=== PATIENT | female | born 1970 | race Hispanic/Latino ===

== ENCOUNTER 2017-05-03 16:28 | Emergency (ER) | payer BC ==
[2017-05-03] MEDS ORDERED: Ketorolac Tromethamine 30 MG/ML VIAL ONE (16:58)
[2017-05-03] MEDS ORDERED: diphenhydrAMINE HCl 50 MG/ML 1 ML VIAL ONE (16:58)
[2017-05-03] MEDS ORDERED: Metoclopramide HCl 10 MG/2 ML VIAL ONE (16:58)
== END 2017-05-03 19:10 | disposition home or self-care (01) ==
LOC: ERS 16:28
DX: R51 Headache (principal)
CPT/HCPCS: 81025; 96365; 96375; J1200; J1885; J2765

== ENCOUNTER 2017-11-17 14:24 | Outpatient (CLI) | payer BC ==
[2017-11-17 15:21] LABS: Hemoglobin 13.7 g/dL (12.0-16.0); Mean Corpuscular HGB CONC 33.8 g/dL (32.0-36.0); Mean Corpuscular Hemoglobin 29.1 pg (27.0-31.0); Mean Corpuscular Volume 86.3 fl (81.0-99.0); Mean Platelet Volume 7.9 fL (7.4-10.4); Platelet Count 252 thou/uL (130-400); RBC Distribution Width 11.6 % (11.5-14.5); White Blood Cell (WBC) Count 7.9 thou/uL (4.8-10.8)
[2017-11-17 15:44] LABS: BHCG - Serum Negative (NEGATIVE); Pregs Control Background? CLEAR/WHITE (CLR/WHITE); Pregs Control Bar Appear? YES (CONTROL BAR)
== END 2017-11-17 14:25 | disposition home or self-care (01) ==
LOC: LABBT 14:24
PROVIDERS: ATTEND Obstetrics & Gynecology
DX: Z01.812 Encounter for preprocedural laboratory examination (principal); R19.09 Other intra-abdominal and pelvic swelling, mass and lump; R10.2 Pelvic and perineal pain
CPT/HCPCS: 84703; 85027; 86850; 86900; 86901

== ENCOUNTER 2017-11-19 10:51 | Emergency (ER) | payer BC ==
[2017-11-19] MEDS ORDERED: Morphine 4 MG/ML VIAL ONE ×2 (11:25→11:33)
[2017-11-19 11:33] LABS: #Basophils 0.1 thou/uL (0.0-0.2); #Eosinphils 0.2 thou/uL (0.0-0.7); #Lymphocytes 1.8 thou/uL (1.20-3.40); #Monocytes 0.8 thou/uL (0.11-0.59); #Neutrophils 6.8 thou/uL (1.40-6.50); %Basophils 0.6 % (0.0-1.0); %Eosinophils 2.4 % (0.0-10.0); %Lymphocytes 18.9 % (21.0-51.0); %Monocytes 7.9 % (0.0-10.0); %Neutrophils 70.1 % (42.0-75.0); Mean Corpuscular HGB CONC 34.5 g/dL (32.0-36.0); Mean Corpuscular Hemoglobin 29.3 pg (27.0-31.0); Mean Corpuscular Volume 85.1 fl (81.0-99.0); Mean Platelet Volume 7.7 fL (7.4-10.4); Platelet Count 248 thou/uL (130-400); RBC Distribution Width 11.6 % (11.5-14.5); Red Blood Cell (RBC) Count 4.78 mill/uL (4.20-5.40); White Blood Cell (WBC) Count 9.8 thou/uL (4.8-10.8)
[2017-11-19 11:37] LABS: BHCG - Serum Negative (NEGATIVE); Pregs Control Background? CLEAR/WHITE (CLR/WHITE); Pregs Control Bar Appear? YES (CONTROL BAR)
[2017-11-19 11:45] LABS: ALT (SGPT) 50 U/L (8-55); AST (SGOT) 27 U/L (5-34); Alkaline Phosphatase 84 U/L (40-150); Anion Gap 13 mmol/L (10-20); BUN (Urea Nitrogen) 16 mg/dL (7.0-18.7); Bilirubin, Total 0.6 mg/dL (0.2-1.2); Calc. Creatinine Clearance 0 mL/min (70-130); Calcium 9.8 mg/dL (7.8-10.44); Carbon Dioxide 23 mmol/L (22-29); Chloride 107 mmol/L (98-107); Estimated GFR-MDRD Greater than 90; Globulin 2.9 g/dL (2.4-3.5); Glucose 95 mg/dL (70-105); Lipase 6 U/L (8-78); Potassium 3.8 mmol/L (3.5-5.1); Protein, Total 6.9 g/dL (6.0-8.3); Sodium 139 mmol/L (136-145)
[2017-11-19 12:45] LABS: Bilirubin Negative (Negative); Blood, Urine Negative (Negative); Clarity CLEAR (Clear); Glucose, Urine (Dipstick) Negative (Negative); Leukocyte Negative (Negative); Nitrite Negative (Negative); Protein, Urine (Dipstick) Negative (Neg-Trace); Specific Gravity, Urine 1.019 (1.002-1.036); Urobilinogen 0.2 mg/dL (0.2-1.0)
--- NOTE | 2017-11-19 13:13 | ULT ---
PELVIC SONOGRAM TRANSABDOMINAL AND TRANSVAGINAL IMAGING WITH DUPLEX EVALUATION: Date: 11/19/17 HISTORY: Pelvic pain. FINDINGS: Urinary bladder decompressed. Uterus has a heterogeneous echotexture and is 7.4 cm. At the left side of the fundus, heterogeneous hypoechoic lesions are 4.0 and 2.8 cm greatest diameter. Small amount of fluid is present at the lower uterine segment. Endometrium is 0.6 cm. Right ovary is 2.5 cm with good color and spectral Doppler flow. Left ovary not visualized. IMPRESSION: Moderate fibroid involvement of the uterus. POS: [facility]
[2017-11-19] MEDS ORDERED: Ketorolac Tromethamine 30 MG/ML VIAL ONE (13:25)
== END 2017-11-19 13:41 | disposition home or self-care (01) ==
LOC: ERS 10:51
DX: D25.9 Leiomyoma of uterus, unspecified (principal)
CPT/HCPCS: 76856; 80053; 81003; 83690; 84703; 85025; 96361; 96374; 96375; J1885; J2270

== ENCOUNTER 2017-12-09 22:21 | Inpatient (IN) | payer BC ==
[2017-12-09 23:13] LABS: Bilirubin Negative (Negative); Blood, Urine Negative (Negative); Clarity CLEAR (Clear); Glucose, Urine (Dipstick) Negative (Negative); Leukocyte Negative (Negative); Nitrite Negative (Negative); Protein, Urine (Dipstick) Negative (Neg-Trace); Specific Gravity, Urine 1.016 (1.002-1.036); Urobilinogen 0.2 mg/dL (0.2-1.0)
[2017-12-09 23:14] LABS: Pregnancy Test - Urine (BHCG) Negative (Negative); Pregu Control Background? CLEAR/WHITE (CLR/WHITE); Pregu Control Bar Appear? YES (CONTROL BAR); Specific Gravity 1.016 (1.002-1.036)
[2017-12-10] MEDS ORDERED: Ondansetron ODT 4 MG TAB ONE (00:31)
[2017-12-10] MEDS ORDERED: Acetaminophen 500 MG TAB ONE (00:31)
[2017-12-10] MEDS ORDERED: Morphine 4 MG/ML VIAL ONE ×2 (00:31→02:18)
[2017-12-10 00:53] LABS: #Basophils 0.1 thou/uL (0.0-0.2); #Eosinphils 0.1 thou/uL (0.0-0.7); #Lymphocytes 2.1 thou/uL (1.20-3.40); #Monocytes 1.1 thou/uL (0.11-0.59); #Neutrophils 9.7 thou/uL (1.40-6.50); %Basophils 0.4 % (0.0-1.0); %Eosinophils 1.1 % (0.0-10.0); %Lymphocytes 16.3 % (21.0-51.0); %Monocytes 8.4 % (0.0-10.0); %Neutrophils 73.8 % (42.0-75.0); Hemoglobin 14.3 g/dL (12.0-16.0); Mean Corpuscular HGB CONC 33.3 g/dL (32.0-36.0); Mean Corpuscular Hemoglobin 28.8 pg (27.0-31.0); Mean Corpuscular Volume 86.4 fl (81.0-99.0); Mean Platelet Volume 8.3 fL (7.4-10.4); Platelet Count 248 thou/uL (130-400); RBC Distribution Width 12.1 % (11.5-14.5); Red Blood Cell (RBC) Count 4.99 mill/uL (4.20-5.40); White Blood Cell (WBC) Count 13.1 thou/uL (4.8-10.8)
[2017-12-10 01:18] LABS: ALT (SGPT) 40 U/L (8-55); AST (SGOT) 27 U/L (5-34); Albumin 4.3 g/dL (3.5-5.0); Alkaline Phosphatase 92 U/L (40-150); Anion Gap 14 mmol/L (10-20); BUN (Urea Nitrogen) 14 mg/dL (7.0-18.7); Bilirubin, Total 0.8 mg/dL (0.2-1.2); Calc. Creatinine Clearance 0 mL/min (70-130); Calcium 9.9 mg/dL (7.8-10.44); Carbon Dioxide 22 mmol/L (22-29); Chloride 106 mmol/L (98-107); Estimated GFR-MDRD Greater than 90; Globulin 3.2 g/dL (2.4-3.5); Glucose 91 mg/dL (70-105); Protein, Total 7.5 g/dL (6.0-8.3); Sodium 138 mmol/L (136-145)
[2017-12-10] MEDS ORDERED: Ciprofloxacin 500 MG TAB ONE (04:28)
[2017-12-10] MEDS ORDERED: metroNIDAZOLE 500 MG/100 ML BAG ONE (04:28)
[2017-12-10] MEDS ORDERED: Ondansetron HCl/PF 4 MG/2 ML Vial IVP PRN ×2 (05:55→07:28)
[2017-12-10] MEDS ORDERED: Acetaminophen 325 MG TAB PO PRN ×2 (05:55→07:28)
[2017-12-10] MEDS ORDERED: Ondansetron ODT 4 MG TAB SL PRN (05:55)
[2017-12-10 05:59] VITALS: BMI 35.0
[2017-12-10] MEDS ORDERED: Sodium Chloride 0.9% 1,000 ML IV SCH ×2 (06:00→07:30)
[2017-12-10] MEDS ORDERED: Zolpidem Tartrate 5 MG TAB PO PRN (07:28)
[2017-12-10] MEDS ORDERED: Loperamide HCl 2 MG CAP PO PRN (07:28)
[2017-12-10] MEDS ORDERED: Milk Of Magnesia 30 ML UDCUP PO PRN (07:28)
[2017-12-10] MEDS ORDERED: Senokot 8.6 MG TAB PO PRN (07:28)
[2017-12-10] MEDS ORDERED: Mag-Al 1200 mg/1200 mg/30 ML UDCUP PO PRN (07:28)
[2017-12-10] MEDS ORDERED: Morphine 4 MG/ML VIAL SLOW IVP PRN (08:00)
--- NOTE | 2017-12-10 09:07 | RAD ---
CHEST ONE VIEW: HISTORY: Pain. FINDINGS: Normal cardiac silhouette. Lungs and pleural spaces are clear. No pneumothorax or osseous abnormali ties. IMPRESSION: No acute cardiopulmonary process. POS: [facility]
[2017-12-10] MEDS: Saccharomyces boulardii 250 MG CAP PO SCH (09:42)
[2017-12-10] MEDS: Famotidine 20 MG TAB PO SCH ×2 (09:42→20:26)
[2017-12-10] MEDS: Enoxaparin Sodium 40 MG/0.4 ML SYRINGE SC SCH (09:43)
[2017-12-10] MEDS: HYDROcodone/Acetaminophen 5/325 mg Tablet PO PRN ×2 (09:43→17:04)
--- NOTE | 2017-12-10 12:26 | HP ---
PRIMARY CARE PHYSICIAN: Dr. Carloz White. REASON FOR ADMISSION: Acute diverticulitis. HISTORY OF PRESENT ILLNESS: A 47-year-old female who came to emergency room with complaint of lower abdominal pain which was started yesterday, which was constant in nature, sharp, about 7/10 in intensity, associated with fever. She denies any hematochezia and melena. She denies any UTI sym ptoms. She denies any vaginal bleeding. Patient reports that she had a similar type of pain in the past. At that time, Dr. Carloz White refe rred her to [facility] [employer] [address] Webber and she had ultrasound done and patient was found with ovarian cyst. Anderson bsequently, patient's pain was subsided by itself. Initially, Dr. Webber told her to have surgery don e, but as she did not have any pain, she did not go for any kind of surgical intervention and subsequ ently she had another ultrasound and as per patient, they were not able to find any more cyst in her ovary. Today, her pain is a similar but more intense and it was unbearable and that is why she decided to co me to emergency room for evaluation. In the emergency room, patient was tachycardic with low grade f ever, febrile. She was relatively hypotensive. She had CT abdomen and pelvis which was done in the emergency room, but I could not see any images in the signups, but based on that report, patient has diverticulitis. She had ultrasound pelvis which was unremarkable. At this point, patient is being a dmitted for acute diverticulitis. She was admitted initially in IMCU, but she is hemodynamically sta ble and that is why we decided to transfer her to medical floor. Patient never had any colonoscopy in the past. EMERGENCY ROOM COURSE: Patient is given Zofran 4 mg, Cipro, Flagyl, morphine 4 mg x2, Tylenol 1 gram and IV fluid. REVIEW OF SYSTEMS: The following complete review of systems was negative, unless otherwise mentioned in the HPI or below: Constitutional: Weight loss or gain, ability to conduct usual activities. Skin: Rash, itching. Eyes: Double vision, pain. ENT/Mouth: Nose bleeding, neck stiffness, pain, tenderness. Cardiovascular: Palpitations, dyspnea on exertion, orthopnea. Respiratory: Shortness of breath, wheezing, cough, hemoptysis, fever or night sweats. Gastrointestinal: Poor appetite, abdominal pain, heartburn, nausea, vomiting, constipation, or diarr hea. Genitourinary: Urgency, frequency, dysuria, nocturia. Musculoskeletal: Pain, swelling. Neurologic/Psychiatric: Anxiety, depression. Allergy/Immunologic: Skin rash, bleeding tendency. Please see my HPI for pertinent positive and negative. All other review of systems reviewed and nega tive except as mentioned in the HPI. ALLERGIES: No known drug allergy. CURRENT HOME MEDICATIONS: Patient was taking Tylenol and ibuprofen on p.r.n. basis at home. PAST MEDICAL HISTORY: The patient was recently found with ovarian cyst on the right side. PAST SURGICAL HISTORY: x4. PAST PSYCHIATRIC HISTORY: Reviewed and negative. SOCIAL HISTORY: Patient is and lives at home with her . No history of tobacco, alcoh ol or illicit drug abuse. FAMILY HISTORY: No strong family history of premature coronary artery disease, stroke or cancer. No family history of colon cancer. PHYSICAL EXAMINATION: VITAL SIGNS: On arrival, blood pressure 144/81. Subsequently, blood pressure reduced to 93/61, puls e 108, temperature 100.6, respiratory rate 28, weight 63.5 kilograms. GENERAL: Patient is currently alert, awake, no obvious acute distress. HEAD: Normocephalic, atraumatic. EYES: Pupils round, reactive to light. Extraocular muscle intact. ENT: Oropharynx within normal limits. Moist mucous membranes, no oral lesion, no pharyngeal erythem a, no exudate. NECK: Supple, no JVD, no thyromegaly, no carotid bruit, no jugular venous distention. LUNGS: Clear to auscultation without any rhonchi or rales. CARDIAC: S1 and S2 regular, tachycardia, no murmur, no gallop, no rub. ABDOMEN: Patient does have suprapubic tenderness on deep palpation. No peritoneal sign, no guarding , no rigidity, no rebound. BACK: No CVA tenderness. EXTREMITIES: Upper extremity passive movement of all joints are normal. Lower extremity, passive mo vements of all joints are normal. No edema. Good peripheral pulsation. SKIN: No skin rash. HEMATOLOGICAL SYSTEM: No lymphadenopathy. PSYCHIATRIC: Normal affect. NEUROLOGIC: Nonfocal examination. The patient moves all 4 limbs. Plantar bilateral flexor. SIGNIFICANT LABORATORY DATA AND IMAGING DATA: 1. CBC: WBC 13.1, hemoglobin 14.3, platelet 248. 2. BMP: Sodium 138, potassium 4.0, chloride 106, carbon dioxide 22, anion gap 14, BUN 14, creatinin e 0.54, glucose 91, calcium 9.9, lactic acid 2.0. 3. LFT: AST 27, ALT 40, alkaline phosphatase 92, albumin 4.3. Urinalysis normal. test n egative. Influenza A and B negative. 4. Chest x-ray based on my review, no acute cardiopulmonary process. 5. Pelvic ultrasound unremarkable. As per emergency room, patient already had CT of the abdomen and pelvis which showed diverticulitis, but I could not see any official report in the computer. ASSESSMENT AND PLAN: 1. Acute diverticulitis based on CT scan finding as well as based on clinical presentation. Patient has leukocytosis, low grade fever. She has suprapubic discomfort. The patient is treated with Cipr o 400 mg IV twice daily, Flagyl 500 mg IV q.8 hourly. We will continue with clear liquid diet. We w ill also continue with IV fluid at NS at 100 mL per hour, Florastor 250 mg p.o. daily. Pain control with morphine p.r.n. basis. The patient will need GI evaluation. 2. Systemic inflammatory response syndrome criteria. Patient had leukocytosis, fever, tachycardia, tachypnea, most likely related with inflammatory process and diverticulitis. Patient's pulse rate is significantly improved after IV fluid and she is afebrile. At this point, we will transfer her to m edical floor. 3. Lower abdominal pain in suprapubic region most likely related with diverticular process. Her uri nalysis is normal. Patient is already on Cipro and Flagyl. 4. Obesity with body mass index of 35. Dietary education given. Weight loss education given. Heal thy lifestyle measures discussed with the patient. 5. Deep venous thrombosis prophylaxis, Lovenox 40 mg subcu daily. 6. Gastrointestinal prophylaxis, Pepcid 20 mg p.o. b.i.d. 7. Code status: The patient is FULL CODE. Patient's is surrogate decision maker. Disposition plan based on clinical course. We are expecting patient's stay in hospital more than 2 m idnights. Plan of care discussed with the patient and her at bedside.
[2017-12-10] MEDS: metroNIDAZOLE 500 MG in Premix Bag 1 BAG IVPB SCH ×2 (12:33→20:27)
--- NOTE | 2017-12-10 13:59 | CT ---
ABDOMEN CT WITH CONTRAST PELVIC CT WITH CONTRAST: HISTORY: Pelvic pain. COMPARISON: 05/15/15. TECHNIQUE: Abdomen and pelvic CT performed with IV contrast. Enteric contrast was not administered. Coronal re formatted images are submitted for interpretation. FINDINGS: ABDOMEN CT: Chronic changes in the lung bases. Heart size is upper normal. No significant pericardial fluid. T he descending thoracic aorta and abdominal aorta have a normal caliber. NO periaortic fat stranding. Intra- and extrahepatic portal veins are patent. Gallbladder is unremarkable. Liver, spleen, pancre as, and adrenal glands have appropriate enhancement. No gastrohepatic, retrocrural, or periportal lymphadenopathy. Symmetric enhancement of the kidneys. Bilaterally, no obstructive uropathy. Limited evaluation of the alimentary canal due to the absence of oral contrast. Gastric mucosa, duod enum, and multiple normal-caliber small bowel loops are noted. Ileocecal junction is normal. Normal -caliber appendix. Scattered fecal material in a nondistended, nondilated colon. Diverticulosis in the left hemicolon. There is mucosal thickening with pericolonic fat stranding involving the distal descending colon and proximal sigmoid colon. There is CT evidence of diverticulitis. No evidence of abscess or bowel perforation. PELVIC CT: Urinary bladder is unremarkable. There is a hypodense mass emanating from the left aspect of the [place]a which may represent a large leiomyoma. Please refer to recent ultrasound report for further deta il. No pelvic mass, lymphadenopathy, or free air. IMPRESSION: 1. Diverticulitis involving the distal descending/proximal sigmoid colon. No evidence of perforatio n or abscess. 2. Asymmetric soft tissue density in the left aspect of the uterus. Please refer to pelvic ultrasou nd performed earlier today for further detail. POS: [facility]
[2017-12-10] MEDS ORDERED: ISOVUE-370 76%-LOCM 1 ML ONE (14:10)
--- NOTE | 2017-12-10 15:40 | ULT ---
PELVIC ULTRASOUND TRANSVAGINAL LIMITED LOW ABDOMEN ULTRASOUND: TECHNIQUE: Gage scale and Doppler color flow imaging performed. CLINICAL INDICATION: Pelvic pain. Periumbilical pain. Fever. FINDINGS: PELVIC ULTRASOUND TRANSVAGINAL: Sonographic imaging of the uterus reveals lobular morphology with heterogeneous echotexture. Finding s indicate component of exophytic fibroid involvement. The endometrium is within normal limits of si ze at 4 mm. No acute ovarian pathology evident. Doppler assessment reveals flow to each ovary with waveforms jean pierre cited. No significant free pelvic fluid. IMPRESSION: 1. Probable fibroid uterus. 2. No free pelvic fluid or significant ovarian pathology. LIMITED LOW ABDOMEN ULTRASOUND: INDICATION: Periumbilical pain. FINDINGS: Lower abdominal sonographic imaging performed at site of pain within the periumbilical region and rig ht lower quadrant. FINDINGS: There is a tubular focus of bowel with a diameter of 1.3 cm. This is not specific as to which portio n of the bowel this may represent. Financial Systems Manager does attempt compression which does not reveal signif icant compressibility. IMPRESSION: Within the imaged low abdomen/periumbilical region/right lower quadrant, there is a noncompressible l oop of bowel slightly greater than 1 cm in diameter. This could relate to a dilated appendix in the correct clinical context. Recommend clinical correlation. This could be further discerned with dedi cated contrast-enhanced CT abdomen and pelvis. POS: [facility]
--- NOTE | 2017-12-10 15:44 | CON ---
DATE OF SERVICE: 12/10/2017 SERVICE: Pulmonary Medicine. REASON FOR CONSULTATION: CU patient. HISTORY OF PRESENT ILLNESS: The patient is a 47-year-old female with past medical history significant for onset of abdominal discomfort about a month ago. She was told she had an ovarian cyst. She was also given some antibiotics. The pain went away. It did not come back until about 2 days prior to admission. At that time, she started having dull abdominal discomfort. It became more severe. She presented to the Emergency Department, was given some antibiotics and discovered to have diverticulitis. She was not having any significant diarrhea, or blood per rectum. She was not having any vomiting. She did have an aversion for food; however. Her blood pressures were originally marginal, but firm up overnight. She is being considered for transition to the floor at this time. PAST MEDICAL HISTORY: 1. Ovarian cyst on the right. 2. History of diverticulosis, recurrent. PAST SURGICAL HISTORY: section x4. FAMILY HISTORY: Noncontributory. SOCIAL HISTORY: Negative for alcohol, tobacco or illicit drug use. She is and lives with her . She has no exposure to chemicals, dust or asbestos. ALLERGIES: No known drug allergies. MEDICATIONS: List of her inpatient medications were reviewed. No specific updates were made at this time. REVIEW OF SYSTEMS: General, head, ears, eyes, nose, throat, cardiovascular, respiratory, GI, , musculoskeletal, neurologic and skin is negative except as mentioned in the HPI. PHYSICAL EXAMINATION: VITAL SIGNS: Afebrile, pulse 82, respirations 15, saturation 99% on room air. GENERAL: The patient is awake and alert, in no apparent distress. LUNGS: Decent air entry. There is no prolonged expiratory phase, wheezing, rhonchi, or crackles present. HEART: Normal rate, regular. ABDOMEN: Soft. Tender to palpation. There is no rebound or guarding present. Bowel sounds are hypoactive. GENITOURINARY: No Perez catheter. NEUROLOGIC: Grossly nonfocal. LABORATORY: WBC 13.1, hemoglobin 14.3, platelets 248,000. Basic metabolic profile is unremarkable. Lactate 2.0 and normal. Urinalysis is completely unremarkable except for trace ketones. Urine is unremarkable. Influenza A and B is negative. IMAGIN. CT of the abdomen and pelvis demonstrates evidence consistent with diverticulitis. 2. Chest x-ray demonstrates no acute cardiopulmonary abnormality. ASSESSMENT: 1. Diverticulitis, recurrent. 2. Sepsis without end organ damage. 3. Marginal blood pressures which firmed up nicely. 4. Right ovarian cyst. PLAN: The patient is doing absolutely fantastic from a respiratory standpoint. At this point, she is stable for transition out of the IMCU to the regular medical unit. Surgical consultation should be considered as this is her second episode. When she arrives on the floor, she will have no further requirements for inpatient Pulmonary or Critical Care opinion and I will sign off. Please call with additional questions or concerns moving forward. 70 minutes have been devoted to this patient in various activities. I personally reviewed all imaging studies and laboratory data noted within this document. For fifty percent of this time, I was interacting with the patient at the bedside or coordinating care with the care team. For the remainder of the time I was immediately available to the patient in the hospital unit. APOLINAR
[2017-12-10] MEDS: Sodium Chloride 0.45% 1,000 ML IV SCH ×2 (16:11→17:07)
[2017-12-11] MEDS: HYDROcodone/Acetaminophen 5/325 mg Tablet PO PRN ×2 (01:01→11:03)
[2017-12-11] MEDS: metroNIDAZOLE 500 MG in Premix Bag 1 BAG IVPB SCH ×3 (03:34→20:24)
[2017-12-11 05:12] LABS: #Eosinphils 0.1 thou/uL (0.0-0.7); #Lymphocytes 1.8 thou/uL (1.20-3.40); #Monocytes 0.8 thou/uL (0.11-0.59); #Neutrophils 6.6 thou/uL (1.40-6.50); %Basophils 0.2 % (0.0-1.0); %Eosinophils 1.3 % (0.0-10.0); %Lymphocytes 19.5 % (21.0-51.0); %Monocytes 8.7 % (0.0-10.0); %Neutrophils 70.3 % (42.0-75.0); Mean Corpuscular HGB CONC 32.7 g/dL (32.0-36.0); Mean Corpuscular Hemoglobin 28.4 pg (27.0-31.0); Mean Corpuscular Volume 86.8 fl (81.0-99.0); Mean Platelet Volume 8.6 fL (7.4-10.4); Platelet Count 224 thou/uL (130-400); Red Blood Cell (RBC) Count 4.24 mill/uL (4.20-5.40); White Blood Cell (WBC) Count 9.4 thou/uL (4.8-10.8)
[2017-12-11 05:37] LABS: Anion Gap 11 mmol/L (10-20); BUN (Urea Nitrogen) 6 mg/dL (7.0-18.7); Calc. Creatinine Clearance 141 mL/min (70-130); Calcium 8.9 mg/dL (7.8-10.44); Carbon Dioxide 22 mmol/L (22-29); Chloride 108 mmol/L (98-107); Estimated GFR-MDRD Greater than 90; Glucose 90 mg/dL (70-105); Potassium 3.1 mmol/L (3.5-5.1); Sodium 138 mmol/L (136-145)
[2017-12-11] MEDS: Enoxaparin Sodium 40 MG/0.4 ML SYRINGE SC SCH (08:19)
[2017-12-11] MEDS: Famotidine 20 MG TAB PO SCH ×2 (08:20→20:26)
[2017-12-11] MEDS: Sodium Chloride 0.45% 1,000 ML IV SCH ×2 (08:20→23:54)
[2017-12-11] MEDS: Saccharomyces boulardii 250 MG CAP PO SCH (08:20)
--- NOTE | 2017-12-11 10:10 | PDOC.PN ---
- Subjective Encounter Start Date: 12/11/17 Encounter Start Time: 08:40 -: old records requested/rev this morning she has vomiting, she has abdominal pain when she stands, no fever Patient seen and examined for diverticulitis. No overnight events - Objective Resuscitation Status: Resuscitation Status FULL:Full Resuscitation MAR Reviewed: Yes Vital Signs & Weight: Vital Signs (12 hours) Temp Pulse Resp BP Pulse Ox 12/11/17 08:00 98.8 F 84 20 12/11/17 07:32 98.8 F 84 20 121/65 93 L 12/11/17 04:59 98.6 F 98 18 105/60 97 12/11/17 00:00 99.3 F 101 H 18 112/65 95 Weight Weight 140 lb 1.6 oz I&O: 12/10/17 12/11/17 12/12/17 06:59 06:59 06:59 Intake Total 2103 Output Total 1400 Balance 703 Result Diagrams: 12/11/17 03:18 12/11/17 03:18 Phys Exam - Physical Examination Constitutional: NAD HEENT: PERRLA, moist MMs, sclera anicteric Neck: no JVD, supple Respiratory: no wheezing, no rales, no rhonchi Cardiovascular: RRR, no significant murmur, no rub Gastrointestinal: soft, no distention, positive bowel sounds lower abdominal discomfort Musculoskeletal: no edema, pulses present Neurological: non-focal, normal sensation, moves all 4 limbs Lymphatic: no nodes Psychiatric: normal affect, A&O x 3 Skin: no rash, normal turgor Dx/Plan (1) Acute diverticulitis Code(s): K57.92 - DVTRCLI OF INTEST, PART UNSP, W/O PERF OR ABSCESS W/O BLEED Status: Acute (2) Sepsis without acute organ dysfunction Code(s): A41.9 - SEPSIS, UNSPECIFIED ORGANISM Status: Acute (3) Obesity (BMI 30-39.9) Code(s): E66.9 - OBESITY, UNSPECIFIED Status: Chronic (4) Uterine fibroid Code(s): D25.9 - LEIOMYOMA OF UTERUS, UNSPECIFIED Status: Chronic - Plan cont current plan of care, plan discussed w/ family, continue antibiotics * medication reviewed as below * symptomatic treatment * continue IV Cipro and flagyl * will consult GI today * pain control with pain meds * discussed with * will monitor. Review of Systems - Review of Systems Constitutional: negative: fever, chills, sweats, weakness, malaise, other Eyes: negative: Pain, Vision Change, Conjunctivae Inflammation, Eyelid Inflammation, Redness, Other ENT: negative: Ear Pain, Ear Discharge, Nose Pain, Nose Discharge, Nose Congestion, Mouth Pain, Mouth Swelling, Throat Pain, Throat Swelling, Other Respiratory: negative: Cough, Dry, Shortness of Breath, Hemoptysis, SOB with Excertion, Pleuritic Pain, Sputum, Wheezing Cardiovascular: negative: chest pain, palpitations, orthopnea, paroxysmal nocturnal dyspnea, edema, light headedness, other Gastrointestinal: Nausea, Vomiting, Abdominal Pain. negative: Diarrhea, Constipation, Melena, Hematochezia, Other Genitourinary: negative: Dysuria, Frequency, Incontinence, Hematuria, Retention , Other Musculoskeletal: negative: Neck Pain, Shoulder Pain, Arm Pain, Back Pain, Hand Pain, Leg Pain, Foot Pain, Other Skin: negative: Rash, Lesions, Marvin, Bruising, Other Neurological: negative: Weakness, Numbness, Incoordination, Change in Speech, Confusion, Seizures, Other - Medications/Allergies Allergies/Adverse Reactions: Allergies Allergy/AdvReac Type Severity Reaction Status Date / Time No Known Allergies Allergy Verified 11/17/17 14:49 Medications: Current Medications Acetaminophen (Tylenol) 650 mg PO Q4H PRN PRN Reason: Headache/Fever or Pain Hydrocodone Bitart/Acetaminophen (Haskell 5/325) 1 tab PO Q4H PRN PRN Reason: Moderate Pain (4-6) Last Admin: 12/11/17 01:01 Dose: 1 tab Al Hydroxide/Mg Hydroxide (Maalox) 30 ml PO Q6H PRN PRN Reason: Heartburn or Indigestion Enoxaparin Sodium (Lovenox) 40 mg SC 0900 [facility] Last Admin: 12/11/17 08:19 Dose: 40 mg Famotidine (Pepcid) 20 mg PO BID [facility] Last Admin: 12/11/17 08:20 Dose: 20 mg Ciprofloxacin/Dextrose 400 mg/ (Device) 200 mls @ 200 mls/hr IVPB 0400,1600 [facility] Last Admin: 12/11/17 03:35 Dose: 200 mls Metronidazole 500 mg/ Device 100 mls @ 100 mls/hr IVPB 0400,1200,2000 [facility] Last Admin: 12/11/17 03:34 Dose: 100 mls Sodium Chloride (1/2 Normal Saline) 1,000 mls @ 50 mls/hr IV .Q20H [facility] Last Admin: 12/11/17 08:20 Dose: Not Given Loperamide HCl (Imodium) 2 mg PO PRN PRN PRN Reason: Diarrhea/Loose Stools Magnesium Hydroxide (Milk Of Magnesium) 30 ml PO DAILYPRN PRN PRN Reason: Constipation Morphine Sulfate (Morphine) 4 mg SLOW IVP Q4H PRN PRN Reason: Pain Ondansetron HCl (Zofran Odt) 4 mg PO Q6H PRN PRN Reason: Nausea/Vomiting Ondansetron HCl (Zofran) 4 mg IVP Q6H PRN PRN Reason: Nausea/Vomiting Last Admin: 12/10/17 12:35 Dose: 4 mg Saccharomyces Boulardii (Florastor) 250 mg PO DAILY [facility] Last Admin: 12/11/17 08:20 Dose: 250 mg Senna (Senokot) 2 tab PO HSPRN PRN PRN Reason: Constipation Sodium Chloride (Flush - Normal Saline) 10 ml IVF Q12HR [facility] Last Admin: 12/11/17 08:20 Dose: 10 ml Sodium Chloride (Flush - Normal Saline) 10 ml IVF PRN PRN PRN Reason: Saline Flush Zolpidem Tartrate (Ambien) 5 mg PO HSPRN PRN PRN Reason: Insomnia
--- NOTE | 2017-12-11 14:15 | EKG ---
Test Reason : Blood Pressure : / mmHG Vent. Rate : 108 BPM Atrial Rate : 108 BPM P-R Int : 124 ms QRS Dur : 090 ms QT Int : 332 ms P-R-T Axes : -03 -10 -12 degrees QTc Int : 444 ms Sinus tachycardia Otherwise normal ECG Confirmed by HARRIS DELEON ([id number]), legal service specialist GOLDIE LANDAVERDE ([id number]) on 12/11/2017 2:15:33 PM Referred By: Confirmed By:HARRIS DELEON
[2017-12-11] MEDS: Ondansetron ODT 4 MG TAB PO PRN (14:28)
--- NOTE | 2017-12-11 18:49 | CON ---
DATE OF CONSULTATION: 12/11/2017 HISTORY OF PRESENT ILLNESS: Patient is a 47-year-old female who was in her normal state of health until the day of admission when she developed significant lower abdominal pain. This was more in the midline. She had previously been diagnosed with an ovarian cyst and she thought this pain wa s back. She came in and underwent a CT and it seems like a more consistent with diverticulitis. She has not had prior episodes of diverticulitis. She has had no change in her bowel function. She has had a lot of nausea and vomiting with this episode. PAST MEDICAL HISTORY: Ovarian cyst, x4. MEDICATIONS: [id number] ibuprofen. SOCIAL HISTORY: Does not smoke or drink. FAMILY HISTORY: Negative for GI or liver disease. REVIEW OF SYSTEMS: Ten systems were reviewed and negative except for above. PHYSICAL EXAMINATION: GENERAL: Shows a well-developed, well-nourished female, in no acute distress. VITAL SIGNS: Temperature 99.3, pulse 76, respiratory rate 18, blood pressure 118/62. HEENT: Unremarkable. NECK: Supple. CHEST: Clear. CARDIOVASCULAR: Regular rate and rhythm. ABDOMEN: Soft, tender in midline, lower abdomen. No rebound or guarding is present. EXTREMITIES: Normal. NEUROLOGIC: Nonfocal. LABORATORY DATA: Shows admission white blood cell count of 13.1, hemoglobin of 14.3, hematocrit of 4 3.1. Chemistries were essentially normal. Urinalysis was negative. Urine test was negati ve. The patient underwent a chest x-ray which was negative. Pelvic and transvaginal ultrasound was performed first that showed a probable fibroid uterus. There was a noncompressible loop of small bow el and a CT was recommended. CT of the abdomen and pelvis was performed and showed diverticulitis in volving the distal descending and proximal sigmoid colon. also, asymmetric soft tissue density in th e left aspect of the uterus. The secondary reading of the CT showed findings related to diverticulit is. Primary malignancy could not be excluded. There was also probable left periuterine an adnexal m ass could relate to the fibroid. ASSESSMENT: 1. Diverticulitis. 2. Uterine fibroid. RECOMMENDATIONS: 1. Continue Cipro and metronidazole. 2. Outpatient colonoscopy in 4-6 weeks. 3. Advance diet when the patient is able to tolerate.
[2017-12-12] MEDS: metroNIDAZOLE 500 MG in Premix Bag 1 BAG IVPB SCH ×3 (03:54→20:50)
[2017-12-12] MEDS ORDERED: diphenhydrAMINE 25 MG CAP PO SCH (07:30)
[2017-12-12] MEDS: Enoxaparin Sodium 40 MG/0.4 ML SYRINGE SC SCH (08:34)
[2017-12-12] MEDS: Famotidine 20 MG TAB PO SCH ×2 (08:35→20:50)
[2017-12-12] MEDS: Saccharomyces boulardii 250 MG CAP PO SCH (08:35)
--- NOTE | 2017-12-12 09:43 | PDOC.PN ---
- Subjective Encounter Start Date: 12/12/17 Encounter Start Time: 08:50 Patient seen and examined for diverticulitis. No new complaints. No overnight events - Objective Resuscitation Status: Resuscitation Status FULL:Full Resuscitation MAR Reviewed: Yes Vital Signs & Weight: Vital Signs (12 hours) Temp Pulse Resp BP Pulse Ox 12/12/17 05:20 98.7 F 82 20 126/68 96 12/12/17 00:00 99.0 F 83 20 127/71 95 Weight Weight 140 lb 1.6 oz I&O: 12/11/17 12/12/17 12/13/17 06:59 06:59 06:59 Intake Total 2103 990 Output Total 1400 Balance 703 990 Result Diagrams: 12/11/17 03:18 12/11/17 03:18 Phys Exam - Physical Examination Constitutional: NAD HEENT: PERRLA, moist MMs, sclera anicteric Neck: no JVD, supple Respiratory: no wheezing, no rales, no rhonchi Cardiovascular: RRR, no significant murmur, no rub Gastrointestinal: soft, non-tender, no distention, positive bowel sounds Musculoskeletal: no edema, pulses present Neurological: non-focal, normal sensation, moves all 4 limbs Lymphatic: no nodes Psychiatric: normal affect, A&O x 3 Skin: no rash, normal turgor Dx/Plan (1) Acute diverticulitis Code(s): K57.92 - DVTRCLI OF INTEST, PART UNSP, W/O PERF OR ABSCESS W/O BLEED Status: Acute (2) Sepsis without acute organ dysfunction Code(s): A41.9 - SEPSIS, UNSPECIFIED ORGANISM Status: Acute (3) Obesity (BMI 30-39.9) Code(s): E66.9 - OBESITY, UNSPECIFIED Status: Chronic (4) Uterine fibroid Code(s): D25.9 - LEIOMYOMA OF UTERUS, UNSPECIFIED Status: Chronic - Plan cont current plan of care, plan discussed w/ family, continue antibiotics * today will advance diet * DC IVF * continue IV cipro and flagyl today * expecting discharge tomorrow * outpt colonoscopy * GI recommendation noted * medication reviewed as below * symptomatic treatment. Review of Systems - Review of Systems Eyes: negative: Pain, Vision Change, Conjunctivae Inflammation, Eyelid Inflammation, Redness, Other ENT: negative: Ear Pain, Ear Discharge, Nose Pain, Nose Discharge, Nose Congestion, Mouth Pain, Mouth Swelling, Throat Pain, Throat Swelling, Other Respiratory: negative: Cough, Dry, Shortness of Breath, Hemoptysis, SOB with Excertion, Pleuritic Pain, Sputum, Wheezing Cardiovascular: negative: chest pain, palpitations, orthopnea, paroxysmal nocturnal dyspnea, edema, light headedness, other Gastrointestinal: negative: Nausea, Vomiting, Abdominal Pain, Diarrhea, Constipation, Melena, Hematochezia, Other Genitourinary: negative: Dysuria, Frequency, Incontinence, Hematuria, Retention , Other Musculoskeletal: negative: Neck Pain, Shoulder Pain, Arm Pain, Back Pain, Hand Pain, Leg Pain, Foot Pain, Other Skin: negative: Rash, Lesions, Marvin, Bruising, Other - Medications/Allergies Allergies/Adverse Reactions: Allergies Allergy/AdvReac Type Severity Reaction Status Date / Time No Known Allergies Allergy Verified 11/17/17 14:49 Medications: Current Medications Acetaminophen (Tylenol) 650 mg PO Q4H PRN PRN Reason: Headache/Fever or Pain Hydrocodone Bitart/Acetaminophen ([place] 5/325) 1 tab PO Q4H PRN PRN Reason: Moderate Pain (4-6) Last Admin: 12/11/17 11:03 Dose: 1 tab Al Hydroxide/Mg Hydroxide (Maalox) 30 ml PO Q6H PRN PRN Reason: Heartburn or Indigestion Enoxaparin Sodium (Lovenox) 40 mg SC 0900 [facility] Last Admin: 12/12/17 08:34 Dose: 40 mg Famotidine (Pepcid) 20 mg PO BID [facility] Last Admin: 12/12/17 08:35 Dose: 20 mg Metronidazole 500 mg/ Device 100 mls @ 100 mls/hr IVPB 0400,1200,2000 [facility] Last Admin: 12/12/17 03:54 Dose: 100 mls Loperamide HCl (Imodium) 2 mg PO PRN PRN PRN Reason: Diarrhea/Loose Stools Magnesium Hydroxide (Milk Of Magnesium) 30 ml PO DAILYPRN PRN PRN Reason: Constipation Morphine Sulfate (Morphine) 4 mg SLOW IVP Q4H PRN PRN Reason: Pain Ondansetron HCl (Zofran Odt) 4 mg PO Q6H PRN PRN Reason: Nausea/Vomiting Last Admin: 12/11/17 14:28 Dose: 4 mg Ondansetron HCl (Zofran) 4 mg IVP Q6H PRN PRN Reason: Nausea/Vomiting Last Admin: 12/10/17 12:35 Dose: 4 mg Saccharomyces Boulardii (Florastor) 250 mg PO DAILY [facility] Last Admin: 12/12/17 08:35 Dose: 250 mg Senna (Senokot) 2 tab PO HSPRN PRN PRN Reason: Constipation Sodium Chloride (Flush - Normal Saline) 10 ml IVF Q12HR [facility] Last Admin: 12/12/17 08:35 Dose: Not Given Sodium Chloride (Flush - Normal Saline) 10 ml IVF PRN PRN PRN Reason: Saline Flush Zolpidem Tartrate (Ambien) 5 mg PO HSPRN PRN PRN Reason: Insomnia
--- NOTE | 2017-12-12 10:15 | PRG ---
DATE OF SERVICE: 12/12/2017 SUBJECTIVE: The patient is feeling better today. She still has some nausea, but is tolerating clear liquids. She is ready to try some full liquids. Her pain is less. OBJECTIVE: VITAL SIGNS: Temperature 98.7, pulse 82, respiratory rate 20, blood pressure 126/68. CHEST: Clear. CARDIOVASCULAR: Regular rate and rhythm. ABDOMEN: Soft, less tender than yesterday. No organomegaly or masses are appreciable. LABORATORY DATA: Chemistry shows potassium 3.1. CBC shows normal white count of 9.4. ASSESSMENT: 1. Diverticulitis of the descending colon. 2. Uterine fibroid. RECOMMENDATIONS: 1. Continue antibiotics. 2. Advance diet to full liquids.
[2017-12-12] MEDS: Ondansetron ODT 4 MG TAB PO PRN ×2 (10:34→20:41)
[2017-12-13] MEDS: metroNIDAZOLE 500 MG in Premix Bag 1 BAG IVPB SCH (04:07)
[2017-12-13 08:02] VITALS: BP 137/75; TEMP 98.8
[2017-12-13] MEDS: Saccharomyces boulardii 250 MG CAP PO SCH (09:13)
[2017-12-13] MEDS: Famotidine 20 MG TAB PO SCH (09:13)
[2017-12-13] MEDS: Enoxaparin Sodium 40 MG/0.4 ML SYRINGE SC SCH (09:13)
--- NOTE | 2017-12-13 11:04 | PDOC.PN ---
- Subjective Encounter Start Date: 12/13/17 Encounter Start Time: 09:20 Patient seen and examined. No new complaints. No overnight events - Objective Resuscitation Status: Resuscitation Status FULL:Full Resuscitation MAR Reviewed: Yes Vital Signs & Weight: Vital Signs (12 hours) Temp Pulse Resp BP Pulse Ox 12/13/17 08:00 98.8 F 70 14 97 12/13/17 07:59 98.8 F 70 14 137/75 97 12/13/17 00:00 98.9 F Weight Weight 140 lb 1.6 oz I&O: 12/12/17 12/13/17 12/14/17 06:59 06:59 06:59 Intake Total 990 540 Balance 990 540 Result Diagrams: 12/11/17 03:18 12/11/17 03:18 Phys Exam - Physical Examination Constitutional: NAD HEENT: PERRLA, moist MMs, sclera anicteric Neck: no JVD, supple Respiratory: no wheezing, no rales, no rhonchi Cardiovascular: RRR, no significant murmur, no rub Gastrointestinal: soft, non-tender, no distention, positive bowel sounds Musculoskeletal: no edema, pulses present Neurological: non-focal, normal sensation, moves all 4 limbs Lymphatic: no nodes Psychiatric: normal affect, A&O x 3 Skin: no rash, normal turgor Dx/Plan (1) Acute diverticulitis Code(s): K57.92 - DVTRCLI OF INTEST, PART UNSP, W/O PERF OR ABSCESS W/O BLEED Status: Acute (2) Sepsis without acute organ dysfunction Code(s): A41.9 - SEPSIS, UNSPECIFIED ORGANISM Status: Acute (3) Obesity (BMI 30-39.9) Code(s): E66.9 - OBESITY, UNSPECIFIED Status: Chronic (4) Uterine fibroid Code(s): D25.9 - LEIOMYOMA OF UTERUS, UNSPECIFIED Status: Chronic - Plan cont current plan of care, plan discussed w/ family, continue antibiotics * medication reviewed as below * symptomatic treatment * stable for discharge today * see discharge summery Review of Systems - Review of Systems ENT: negative: Ear Pain, Ear Discharge, Nose Pain, Nose Discharge, Nose Congestion, Mouth Pain, Mouth Swelling, Throat Pain, Throat Swelling, Other Respiratory: negative: Cough, Dry, Shortness of Breath, Hemoptysis, SOB with Excertion, Pleuritic Pain, Sputum, Wheezing Cardiovascular: negative: chest pain, palpitations, orthopnea, paroxysmal nocturnal dyspnea, edema, light headedness, other Gastrointestinal: negative: Nausea, Vomiting, Abdominal Pain, Diarrhea, Constipation, Melena, Hematochezia, Other Genitourinary: negative: Dysuria, Frequency, Incontinence, Hematuria, Retention , Other Musculoskeletal: negative: Neck Pain, Shoulder Pain, Arm Pain, Back Pain, Hand Pain, Leg Pain, Foot Pain, Other - Medications/Allergies Allergies/Adverse Reactions: Allergies Allergy/AdvReac Type Severity Reaction Status Date / Time ciprofloxacin Allergy Verified 12/12/17 12:11 Medications: Current Medications Acetaminophen (Tylenol) 650 mg PO Q4H PRN PRN Reason: Headache/Fever or Pain Hydrocodone Bitart/Acetaminophen ([place] 5/325) 1 tab PO Q4H PRN PRN Reason: Moderate Pain (4-6) Last Admin: 12/11/17 11:03 Dose: 1 tab Al Hydroxide/Mg Hydroxide (Maalox) 30 ml PO Q6H PRN PRN Reason: Heartburn or Indigestion Enoxaparin Sodium (Lovenox) 40 mg SC 0900 [facility] Last Admin: 12/13/17 09:13 Dose: 40 mg Famotidine (Pepcid) 20 mg PO BID [facility] Last Admin: 12/13/17 09:13 Dose: 20 mg Metronidazole 500 mg/ Device 100 mls @ 100 mls/hr IVPB 0400,1200,2000 [facility] Last Admin: 12/13/17 04:07 Dose: 100 mls Loperamide HCl (Imodium) 2 mg PO PRN PRN PRN Reason: Diarrhea/Loose Stools Magnesium Hydroxide (Milk Of Magnesium) 30 ml PO DAILYPRN PRN PRN Reason: Constipation Morphine Sulfate (Morphine) 4 mg SLOW IVP Q4H PRN PRN Reason: Pain Ondansetron HCl (Zofran Odt) 4 mg PO Q6H PRN PRN Reason: Nausea/Vomiting Last Admin: 12/12/17 20:41 Dose: 4 mg Ondansetron HCl (Zofran) 4 mg IVP Q6H PRN PRN Reason: Nausea/Vomiting Last Admin: 12/10/17 12:35 Dose: 4 mg Saccharomyces Boulardii (Florastor) 250 mg PO DAILY [facility] Last Admin: 12/13/17 09:13 Dose: 250 mg Senna (Senokot) 2 tab PO HSPRN PRN PRN Reason: Constipation Sodium Chloride (Flush - Normal Saline) 10 ml IVF Q12HR [facility] Last Admin: 12/13/17 09:13 Dose: 10 ml Sodium Chloride (Flush - Normal Saline) 10 ml IVF PRN PRN PRN Reason: Saline Flush Zolpidem Tartrate (Ambien) 5 mg PO HSPRN PRN PRN Reason: Insomnia
--- NOTE | 2017-12-13 12:06 | DIS ---
DATE OF ADMISSION: 12/10/2017 DATE OF DISCHARGE: 12/13/2017 PRIMARY CARE PHYSICIAN: Carloz White M.D. DISCHARGE DISPOSITION: Home. PRIMARY DISCHARGE DIAGNOSES: 1. Acute diverticulitis. 2. Sepsis without acute organ dysfunction. SECONDARY DISCHARGE DIAGNOSES: Obesity with body mass index 35 and uterine fibroid. PRIMARY PROCEDURES/OPERATIONS: None. RADIOLOGICAL INVESTIGATION: Pelvic ultrasound showed uterine fibroid. Chest x-ray normal. Abdomen and pelvis CT scan consistent with diverticulitis. SIGNIFICANT LABORATORY DATA: WBC 9.4, hemoglobin 12.0, platelet 224. Sodium 138, potassium 3.1, BUN 6, creatinine 0.49. LFT normal. Urinalysis normal. Blood culture negative. Urine culture negativ e. Influenza negative. DISCHARGE MEDICATIONS: Cipro 500 mg p.o. b.i.d. for 15 days, Flagyl 500 mg p.o. t.i.d. for 15 days, Pepcid 20 mg p.o. b.i.d., Florastor 250 mg p.o. daily for 15 days. CONTRAINDICATIONS: None. CODE STATUS: FULL CODE. INPATIENT CONSULTANTS: Dr. Gage was consulted while in hospital. Dr. Rodriguez saw [facility] was [facility] to [facility]. TEST RESULTS PENDING ON DISCHARGE: None. ALLERGIES: No known drug allergy. DISCHARGE PLAN: Post hospital, patient will follow up with primary care physician. The patient will follow up with Dr. Gage in 2-3 weeks. HOSPITAL COURSE: A 47-year-old female with above-mentioned medical problem who was admitted for acut e diverticulitis. She was having lower abdominal pain. She had ultrasound pelvis which showed uteri ne fibroid. CT of the abdomen and pelvis was consistent with acute diverticulitis. She was treated with Cipro and Flagyl without any problem. While in the hospital, her pain was controlled with morph ine. She was hydrated with IV fluid. Her potassium was replaced. Initially, she was kept on clear liquid and subsequently once pain was controlled, then we advanced diet to full liquid and bland GI d iet. The patient was tolerating very well. She did not have any nausea or vomiting. She was ambula tory. Her pain was completely subsided. The patient was ready to go home today. Dr. Gage saw this patient and he will do colonoscopy after 2 -3 weeks upon followup visit. Today, I have done paperwork for the patient. [place] paperwork for her work. The patient is seen and examined at bedside today. All new medication prescription sent to her pharm acy. This patient is not allergic to CIPRO which was listed in our hospital. She was getting antibiotic i n our hospital without any problem.
== END 2017-12-13 11:23 | disposition home or self-care (01) | DRG 872 ==
LOC: ERS 22:21 → IMCU/EMU 12-10 05:51 → T4-B 12-10 13:52
PROVIDERS: ADMIT Internal Medicine; ATTEND Internal Medicine
DX: A41.9 Sepsis, unspecified organism (principal); K57.32 Diverticulitis of large intestine without perforation or abscess without bleeding; F41.9 Anxiety disorder, unspecified; F32.9 Major depressive disorder, single episode, unspecified; E66.9 Obesity, unspecified; D25.9 Leiomyoma of uterus, unspecified; N83.201 Unspecified ovarian cyst, right side; Z68.35 Body mass index [BMI] 35.0-35.9, adult
CPT/HCPCS: 36415; 71045; 74177; 76856; 80048; 80053; 81003; 81025; 83605; 85025; 87040; 87086; 87804; 93005; 96361; 96365; 96375; 96376; A4216; J0744; J1650; J2270; J2405; Q0162

== ENCOUNTER 2018-02-02 15:00 | Inpatient (IN) | payer BC ==
[2018-02-02 15:55] VITALS: BMI 25.4
--- NOTE | 2018-02-02 21:11 | HP ---
DATE OF PLANNED PROCEDURE: 02/05/2018 PROCEDURE TO BE PERFORMED: Robotic assist total laparoscopic hysterectomy. PREOPERATIVE DIAGNOSES: Pelvic mass, suspected pedunculated fibroid and pelvic pain. HISTORY OF PRESENT ILLNESS: Patient is a 47-year-old G4, P4 who was referred to me for increasing pe lvic pain that is left lower quadrant and radiates to the midline. At the time of her initial consul tation in November, she gives a history of discomfort off and on for the last year, but the last few month s it has been much worse. 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 She came to me taking diclofenac 30 mg daily with suboptimal relief. The patie nt gave a report of normal monthly menses until 09/2017 when she began having prolonged bleeding foll owed by a period of amenorrhea. The patient does report occasional hot flashes and night sweats as w ell. The patient had a gynecologic ultrasound in November which was suspected to have a left adnexal mass as well as a uterine fibroid. The patient had an ER visit after her initial consult with me that sh owed normal ovaries. For that reason, the patient was brought back to the office for followup exam w ith a pelvic mass still felt on exam and ultrasound at that time suggesting that the pelvic mass was actually a pedunculated fibroid. The patient has been counseled on her management options and desire s to undergo definitive management with a total laparoscopic hysterectomy with bilateral salpingectom y and ovarian preservation if her ovaries appear normal at the time of surgery. PAST MEDICAL HISTORY: Gastritis. PAST SURGICAL HISTORY: Four previous sections. GYNECOLOGIC HISTORY: Irregular periods. Last Pap smear within normal limits. SOCIAL HISTORY: The patient has never been a smoker. She denies using alcohol or drugs. She works part time receptionist, and sexually active. ALLERGIES: No known drug allergies. FAMILY HISTORY: Negative for hypertension, diabetes, stroke, hypercholesterolemia, or cancers. CURRENT MEDICATIONS: None. PHYSICAL EXAMINATION: VITAL SIGNS: Height 5 feet, blood pressure 110/70, weight 135 pounds, BMI 26, respirations 18, pulse 82. GENERAL: No acute distress. Alert and oriented. CARDIOVASCULAR: Regular rate and rhythm. LUNGS: Nonlabored breathing. ABDOMEN: Soft, mild tenderness in the midline. GENITOURINARY: Normal external female genitalia, normal vaginal mucosa, no vaginal discharge. Florence l cervix with no lesions. Fullness on bimanual exam in the left lower quadrant that extends to the m idline with mild tenderness to mobilization of the mass. MUSCULOSKELETAL: Grossly normal. NEUROLOGIC: Normal. SKIN: Normal. ASSESSMENT: Ms. Aleena Maya is a 47-year-old G4, P4 with 4 previous sections and a suspecte d pedunculated fibroid mass and pelvic pain, desiring definitive management with a hysterectomy. PLAN: We discussed the risk and benefits of the procedure. She understands risks are to include, bu t not limited to bleeding, infection, damage to intraabdominal or pelvic organs, possible need for la parotomy, inability to fully diagnose and treat all conditions at the time of surgery and possible ne ed for future medical and/or surgical management. The patient's questions have been answered in her [place] language of English to her satisfaction, and she desires to proceed with the procedure as list ed above.
[2018-02-05] MEDS ORDERED: Midazolam HCl 2 mg/2 ml Vial ONE (06:13)
[2018-02-05] MEDS ORDERED: Fentanyl 250 MCG/5 ML VIAL ONE (06:13)
[2018-02-05] MEDS ORDERED: CEFAZOLIN/Water 2 GM/20 ML SYRINGE ONE (06:13)
[2018-02-05] MEDS ORDERED: Lidocaine 2% Jelly 5 ML TUBE ONE (06:13)
[2018-02-05] MEDS ORDERED: Gabapentin 300 MG CAP ONE (06:14)
[2018-02-05] MEDS ORDERED: CeleCOXIB 100 MG CAP ONE ×2 (06:15)
[2018-02-05] MEDS ORDERED: Famotidine/PF 20 mg/2ml Vial ONE (06:15)
[2018-02-05] MEDS ORDERED: Bupivacaine HCl 0.5%/Epinephrine 1:200,000/PF 30 ml Vial ONE (06:56)
[2018-02-05] MEDS ORDERED: Ropivacaine 0.2% 550 ML 750 ML NERVE BLCK SCH ×2 (07:45→12:45)
[2018-02-05] MEDS ORDERED: HYDROmorphone 0.5 MG/0.5 ML SYRINGE ONE (08:17)
[2018-02-05] MEDS ORDERED: Ondansetron HCl/PF 4 MG/2 ML Vial IVP PRN ×2 (09:48→10:11)
[2018-02-05] MEDS ORDERED: Promethazine HCl 25 MG/ML VIAL SLOW IVP PRN (09:48)
[2018-02-05] MEDS ORDERED: Promethazine HCl 25 MG/ML VIAL IM PRN ×2 (09:48→10:11)
[2018-02-05] MEDS ORDERED: HYDROmorphone 2 MG/ML VIAL SLOW IVP PRN (09:48)
--- NOTE | 2018-02-05 09:56 | PDOC.OP ---
Operative Note - Operative Note Operative Note: Immediate postop note Pre op: fibroid, pelvic pain Post op: same Surg: [facility] Assist: Luedke Procedure : RATLH BS Findings: enlarged uterus with fundal fibroid, normal appearing tubes and ovaries, dense adhesions of bladder to uterus/cervix EBL: 100ml Complications: none
[2018-02-05] MEDS ORDERED: Bisacodyl 10 MG SUPP PR PRN (10:11)
[2018-02-05] MEDS ORDERED: Acetaminophen 325 MG TAB PO PRN (10:11)
[2018-02-05] MEDS ORDERED: Zolpidem Tartrate 5 MG TAB PO PRN (10:11)
[2018-02-05] MEDS ORDERED: diphenhydrAMINE 25 MG CAP PO PRN (10:11)
[2018-02-05] MEDS ORDERED: Simethicone Chewable 80 MG TAB PO PRN (10:11)
[2018-02-05] MEDS ORDERED: Morphine 4 MG/ML Carpuject SLOW IVP PRN (10:11)
[2018-02-05] MEDS ORDERED: Acetaminophen/Codeine 30-300mg Tablet PO PRN ×2 (10:11)
[2018-02-05] MEDS ORDERED: Morphine 4 MG/ML VIAL SLOW IVP PRN (10:33)
--- NOTE | 2018-02-05 10:57 | OP ---
DATE OF PROCEDURE: 02/05/2018 PREOPERATIVE DIAGNOSES: 1. Enlarged fibroid uterus 2. Pelvic pain. POSTOPERATIVE DIAGNOSES: 1. Enlarged fibroid uterus 2. Pelvic pain. PROCEDURE PERFORMED: Robotic-assisted total laparoscopic hysterectomy with bilateral salpingectomy a nd placement of ON-Q pump. SURGEON: Sabas Webber D.O. MATHEMATICAL ENGINEER: Meche anderson D.O. ANESTHESIA: GETA. ESTIMATED BLOOD LOSS: 100 mL. COMPLICATIONS: None. URINE OUTPUT: 300 mL at the start of the case and approximately 100 mL during the case. OPERATIVE FINDINGS: 1. Enlarged uterus with fundal fibroid. 2. Normal-appearing tubes and ovaries. 3. Dense adhesions of the urinary bladder to the cervix and uterus. 4. Hemostatic vaginal cuff in surgical sites. SPECIMEN REMOVED: Uterus with fibroid and fallopian tubes and cervix. PROCEDURE DETAILS: The patient was taken back to the OR with IV fluids running. Once she was in the operating room, she was placed in dorsal supine position and general anesthesia was obtained. Once the patient was asleep, she was placed in low dorsal lithotomy position and the abdomen and vagina we re prepped and draped in normal fashion for gynecologic laparoscopy. An operative speculum was place d into the vagina. The cervix was identified and the anterior lip of the cervix was grasped with a t enaculum. The uterus was sounded to 8 cm. The cervix was then serially dilated to allow placement o f a uterine manipulator tip. The MIRNA Smita manipulator was assembled with a 3.5 cm cup and 8 cm tip a nd placed into the uterus and vagina in the normal fashion. After this was completed, the tenaculum was removed. The vaginal occluder balloon was inflated. A Perez catheter was placed with 300 mL of urine drained at the start of the case. A Dylan syringe was placed on the tip of the Perez for blad poornima manipulation as needed during the case. Beginning approximately 2-3 cm above the umbilicus, loca l anesthesia was placed underneath the skin. A 12-mm skin incision was made with the scalpel. Veres s needle was placed through this incision and the abdomen was insufflated without difficulty. A 12-m m trocar was then placed through this incision followed by the laparoscope. The patient was then yue blanca in Trendelenburg with the above findings noted. Next, under direct visualization in a similar fa shion, the left and right lower quadrant 8-mm port and right upper quadrant 11-mm ports were all plac ed under direct visualization without difficulty or complication. Once all the ports were placed, ro botic arms were docked to the ports and the instruments were directed under visualization towards the uterus. Beginning on the patient's right side, the right fallopian tube was grasped, elevated away from the pelvic sidewall, and dissected away from the mesosalpinx and uterus using bipolar cautery an d monopolar scissors. The specimen was removed from the surgical field and sent with the final path specimen. The uteroovarian ligament was cauterized and incised, allowing the right ovary to fall kevin y from the uterus. The right round ligament was cauterized and divided into anterior and posterior l eaves. It was dissected down towards the level of the uterine artery. The bladder was noted to be d ensely adhered to the uterus and cervix. The bladder was back filled and fine dissection was taken t o dissect the bladder away from the uterus and planned colpotomy site. Due to the dense adhesions of the bladder, to the cervix and uterus, the bladder flap dissection added a significant amount of oren e onto the case with approximately 20 additional minutes spent during this portion of the dissection. With the bladder back filled, we were able to delineate the bladder and vesicouterine tissue from t he scar and the uterus. Once this dissection was completed on the right side, attention was turned t o the patient's left side. In similar fashion, the left fallopian tube was removed. The left utero- ovarian ligament was cauterized and divided and the left round ligament was cauterized and divided in to anterior and posterior leaves. The dissection was taken down towards the level of the uterine art brett. Again with careful dissection, the bladder flap was dissected away from the uterus and cervix c oming from the patient's left side towards the midline. Once the bladder was completely dissected aw ay from the uterus, it was then dissected down in layers away from planned colpotomy site. The bladd er was back filled again with no bladder leakage or injury to the bladder noted. Uterine arteries we re then cauterized and divided on both sides of the cervix. The colpotomy was made and completed cir cumferentially. The uterus and fibroid specimen were retracted gently through the vaginal opening in to the vagina where they were kept for pneumoperitoneum during the remaining portion of the case. Th e vaginal cuff was then closed with running stitch of Stratafix suture and in 2 layers. Once the vag inal cuff closure was complete, the surgical pedicles, bladder dissection, and vaginal cuff were copi ously irrigated and suctioned dry. The intraabdominal pressure was dropped to 6 mmHg with no areas o f bleeding noted. The bladder was back filled one last time with no evidence of bladder compromise. A layer of Tisseel was then placed over the surgical site. An ON-Q catheter tip was placed under di rect visualization to the abdominal wall and laid into the cul-de-sac. It was primed and noted to be functioning well. All instruments were then removed from the abdomen. The supraumbilical port site was closed at the fascial layer with Vicryl suture. All 4 skin incisions were closed with Monocryl suture and dressed with Dermabond dressing. The vagina was inspected at the end of the case with the vaginal cuff noted to be hemostatic. There were no complications.
[2018-02-05] MEDS ORDERED: Fentanyl 100 MCG/2 ML VIAL ONE (11:38)
[2018-02-05] MEDS ORDERED: Promethazine HCl 25 MG/ML VIAL ONE (11:41)
[2018-02-05] MEDS ORDERED: Glycopyrrolate 0.2 MG/ML 5 ML SYRINGE ONE (12:28)
[2018-02-05] MEDS ORDERED: Lidocaine 1% PF 5 ML VIAL ONE (12:28)
[2018-02-05] MEDS ORDERED: PROPOFOL 200 MG/20 ML VIAL ONE (12:28)
[2018-02-05] MEDS ORDERED: Dexamethasone 20 MG/5 ML VIAL ONE (12:28)
[2018-02-05] MEDS ORDERED: Ondansetron HCl/PF 4 MG/2 ML Vial ONE (12:28)
[2018-02-05] MEDS ORDERED: Ropivacaine HCl/PF 750 ML in Premix Bag 1 BAG NERVE BLCK SCH (12:45)
[2018-02-05] MEDS: Ketorolac Tromethamine 30 MG/ML VIAL IVP SCH ×3 (13:21→23:19)
[2018-02-05] MEDS: Sodium Chloride 0.9% 1,000 ML IV SCH ×2 (13:21→19:22)
[2018-02-06] MEDS: Sodium Chloride 0.9% 1,000 ML IV SCH (02:35)
[2018-02-06] MEDS ORDERED: Sodium Chloride 0.9% 10 ML ONE (05:25)
[2018-02-06 05:36] VITALS: BP 99/53; TEMP 98.2
[2018-02-06] MEDS: Ketorolac Tromethamine 30 MG/ML VIAL IVP SCH (05:36)
[2018-02-06 06:01] LABS: Mean Corpuscular HGB CONC 34.5 g/dL (32.0-36.0); Mean Corpuscular Hemoglobin 29.7 pg (27.0-31.0); Mean Corpuscular Volume 86.1 fL (78.0-98.0); Mean Platelet Volume 8.3 fL (7.4-10.4); Platelet Count 235 thou/uL (130-400); RBC Distribution Width 12.1 % (11.5-14.5); Red Blood Cell (RBC) Count 4.04 mill/uL (4.20-5.40); White Blood Cell (WBC) Count 8.9 thou/uL (4.8-10.8)
--- NOTE | 2018-02-06 10:16 | PDOC.EVN ---
Event Note - Event Note Event Note: POD1 S: min pain, no bleeding, ambulating, nadja reg diet O: VSWNL Vital Signs (12 hours) Temp Pulse Resp BP Pulse Ox 02/06/18 05:34 98.2 F 79 16 99/53 L 96 02/06/18 00:00 95 Weight Weight 135 lb NAD A and O nonlabored breating abd soft, NTTP, inc CDI x 4 keven dry Laboratory Results - last 24 hr 02/06/18 05:05 WBC 8.9 RBC 4.04 L Hgb 12.0 Hct 34.7 L MCV 86.1 MCH 29.7 MCHC 34.5 RDW 12.1 Plt Count 235 MPV 8.3 A/P: POD 1 sp GENOVEVA, doing well, post op goals met, DC home, OnQ instructions reviewed.
== END 2018-02-06 11:45 | disposition home or self-care (01) | DRG 743 ==
LOC: EEVIPCON 02-05 06:05 → SURG A 02-05 06:05 → 3SW 02-05 12:20 → EDSTATUS 02-05 15:00
PROVIDERS: ADMIT Obstetrics & Gynecology; ATTEND Obstetrics & Gynecology
PROC: 0UT94ZZ Resection of Uterus, Percutaneous Endoscopic Approach (ICD-10-PCS; principal; 2018-02-05)
PROC: 0UT74ZZ Resection of Bilateral Fallopian Tubes, Percutaneous Endoscopic Approach (ICD-10-PCS; 2018-02-05)
PROC: 8E0W4CZ Robotic Assisted Procedure of Trunk Region, Percutaneous Endoscopic Approach (ICD-10-PCS; 2018-02-05)
DX: D25.9 Leiomyoma of uterus, unspecified (principal); R10.2 Pelvic and perineal pain; R19.00 Intra-abdominal and pelvic swelling, mass and lump, unspecified site; N73.6 Female pelvic peritoneal adhesions (postinfective)
CPT/HCPCS: 36415; 85027; 88307; A4216; A4306; J0670; J1170; J1885; J2250; J2270; J2550; J2795; J3010; S0028

== ENCOUNTER 2018-02-02 15:43 | Outpatient (CLI) | payer BC ==
[2018-02-02 16:37] LABS: Hemoglobin 13.6 g/dL (12.0-16.0); Mean Corpuscular HGB CONC 33.6 g/dL (32.0-36.0); Mean Corpuscular Volume 86.3 fL (78.0-98.0); Mean Platelet Volume 8.1 fL (7.4-10.4); Platelet Count 263 thou/uL (130-400); RBC Distribution Width 12.2 % (11.5-14.5); Red Blood Cell (RBC) Count 4.67 mill/uL (4.20-5.40)
[2018-02-02 16:40] LABS: BHCG - Serum Negative (NEGATIVE); Pregs Control Background? CLEAR/WHITE (CLR/WHITE); Pregs Control Bar Appear? YES (CONTROL BAR)
[2018-02-02 16:57] LABS: ALT (SGPT) 32 U/L (8-55); AST (SGOT) 23 U/L (5-34); Albumin 4.2 g/dL (3.5-5.0); Alkaline Phosphatase 89 U/L (40-150); Anion Gap 12 mmol/L (10-20); BUN (Urea Nitrogen) 18 mg/dL (7.0-18.7); Bilirubin, Total 0.3 mg/dL (0.2-1.2); Calc. Creatinine Clearance 0 mL/min (70-130); Calcium 9.8 mg/dL (7.8-10.44); Carbon Dioxide 24 mmol/L (22-29); Chloride 108 mmol/L (98-107); Estimated GFR-MDRD Greater than 90; Globulin 2.7 g/dL (2.4-3.5); Glucose 108 mg/dL (70-105); Potassium 4.4 mmol/L (3.5-5.1); Protein, Total 6.9 g/dL (6.0-8.3); Sodium 140 mmol/L (136-145)
== END 2018-02-02 15:44 | disposition home or self-care (01) ==
LOC: LABBT 15:43
PROVIDERS: ATTEND Obstetrics & Gynecology
DX: Z01.812 Encounter for preprocedural laboratory examination (principal); D25.1 Intramural leiomyoma of uterus
CPT/HCPCS: 80053; 84703; 85027; 86850; 86900; 86901

== ENCOUNTER 2018-02-23 05:30 | Emergency (ER) | payer BC ==
[2018-02-23 06:21] LABS: Bilirubin Negative (Negative); Blood, Urine Small (Negative); Clarity CLEAR (Clear); Glucose, Urine (Dipstick) Negative (Negative); Leukocyte Small (Negative); Nitrite Negative (Negative); Protein, Urine (Dipstick) Negative (Neg-Trace); Specific Gravity, Urine 1.012 (1.002-1.036); Urobilinogen 0.2 mg/dL (0.2-1.0)
[2018-02-23 06:23] LABS: Pregnancy Test - Urine (BHCG) Negative (Negative); Pregu Control Background? CLEAR/WHITE (CLR/WHITE); Pregu Control Bar Appear? YES (CONTROL BAR); Specific Gravity 1.012 (1.002-1.036)
[2018-02-23] MEDS ORDERED: Lidocaine 1% PF 5 ML VIAL ONE ×2 (06:50→06:52)
[2018-02-23] MEDS ORDERED: cefTRIAXone\\ROCEPHIN 1 GM VIAL ONE (06:50)
== END 2018-02-23 07:09 | disposition home or self-care (01) ==
LOC: ERS 05:30
DX: N30.01 Acute cystitis with hematuria (principal); Z79.891 Long term (current) use of opiate analgesic; Z79.899 Other long term (current) drug therapy
CPT/HCPCS: 81003; 81015; 81025; 87086; 96372; J0696; J2001

== ENCOUNTER 2018-02-25 03:35 | Emergency (ER) | payer BC ==
[2018-02-25 04:22] LABS: #Basophils 0.1 thou/uL (0.0-0.2); #Eosinphils 0.3 thou/uL (0.0-0.7); #Lymphocytes 2.5 thou/uL (1.20-3.40); #Neutrophils 8.5 thou/uL (1.40-6.50); %Basophils 0.5 % (0.0-1.0); %Eosinophils 2.1 % (0.0-10.0); %Lymphocytes 20.6 % (21.0-51.0); %Monocytes 7.8 % (0.0-10.0); %Neutrophils 69.1 % (42.0-75.0); Hemoglobin 13.3 g/dL (12.0-16.0); Mean Corpuscular HGB CONC 34.9 g/dL (32.0-36.0); Mean Corpuscular Hemoglobin 29.7 pg (27.0-31.0); Mean Platelet Volume 7.6 fL (7.4-10.4); Platelet Count 310 thou/uL (130-400); RBC Distribution Width 11.6 % (11.5-14.5); Red Blood Cell (RBC) Count 4.47 mill/uL (4.20-5.40); White Blood Cell (WBC) Count 12.3 thou/uL (4.8-10.8)
[2018-02-25 04:25] LABS: Bilirubin Negative (Negative); Blood, Urine Negative (Negative); Clarity CLEAR (Clear); Glucose, Urine (Dipstick) Negative (Negative); Leukocyte Small (Negative); Nitrite Positive (Negative); Protein, Urine (Dipstick) Negative (Neg-Trace)
[2018-02-25 04:27] LABS: Bacteria/HPF None Seen HPF (None Seen); Hyaline Casts/LPF 0-3 HYALINE CAST LPF (0-3 Hyaline); Pathc Cast-AUWi Flag 0.58 (0-2.49); Squamous Epithelial 0-3 HPF (0-3)
[2018-02-25 04:29] LABS: Pregnancy Test - Urine (BHCG) Negative (Negative); Pregu Control Background? CLEAR/WHITE (CLR/WHITE); Pregu Control Bar Appear? YES (CONTROL BAR)
[2018-02-25 04:36] LABS: ALT (SGPT) 75 U/L (8-55); AST (SGOT) 65 U/L (5-34); Albumin 4.3 g/dL (3.5-5.0); Alkaline Phosphatase 134 U/L (40-150); Anion Gap 14 mmol/L (10-20); BUN (Urea Nitrogen) 15 mg/dL (7.0-18.7); Bilirubin, Total 0.8 mg/dL (0.2-1.2); Calc. Creatinine Clearance 0 mL/min (70-130); Carbon Dioxide 23 mmol/L (22-29); Chloride 104 mmol/L (98-107); Estimated GFR-MDRD Greater than 90; Globulin 3.6 g/dL (2.4-3.5); Glucose 117 mg/dL (70-105); Lipase 8 U/L (8-78); Potassium 3.9 mmol/L (3.5-5.1); Protein, Total 7.9 g/dL (6.0-8.3); Sodium 137 mmol/L (136-145)
[2018-02-25] MEDS ORDERED: Morphine 4 MG/ML VIAL ONE (06:25)
--- NOTE | 2018-02-25 07:53 | CT ---
CT ABDOMEN AND PELVIS WITH IV CONTRAST: HISTORY: Lower abdominal pain, diarrhea. Recent diagnosis of UTI FINDINGS: Comparison is made with the exam of 12/10/17. The lung bases are clear. The liver, pancreas, spleen, adrenal glands, and kidneys are normal. No c alcified gallstones are seen. A normal-appearing appendix present. There is colonic diverticulosis. Uterus is present. There are inflammatory changes in the pelvis surrounding the uterus, bladder an d portions of the sigmoid colon. No abnormally loculated fluid collection is seen to suggest abscess formation. No free air is seen. A small amount of free fluid is noted in the pelvis. IMPRESSION: 1. No evidence of appendicitis. 2. Inflammatory changes in the pelvis which may be due to sigmoid diverticulitis, pelvic inflammator y disease, UTI or a combination thereof. POS: HUMZA
[2018-02-25] MEDS ORDERED: metroNIDAZOLE 500 MG in Premix Bag 1 BAG IVPB SCH (08:00)
[2018-02-25] MEDS ORDERED: metroNIDAZOLE 500 MG/100 ML BAG ONE (08:07)
[2018-02-25] MEDS ORDERED: ISOVUE-370 76%-LOCM 1 ML ONE (15:02)
== END 2018-02-25 09:51 | disposition home or self-care (01) ==
LOC: ERS 03:35
DX: N30.90 Cystitis, unspecified without hematuria (principal); K57.32 Diverticulitis of large intestine without perforation or abscess without bleeding; Z79.899 Other long term (current) drug therapy
CPT/HCPCS: 36415; 74177; 80053; 81003; 81015; 81025; 83690; 85025; 87086; 96361; 96365; 96368; 96375; J0744; J2270

== ENCOUNTER 2019-01-08 01:01 | Emergency (ER) | payer BC, OTHER ==
[2019-01-08] MEDS ORDERED: Metoclopramide HCl 10 MG/2 ML VIAL ONE (01:12)
[2019-01-08] MEDS ORDERED: diphenhydrAMINE 50 MG/ML VIAL ONE (01:12)
[2019-01-08] MEDS ORDERED: Ketorolac Tromethamine 30 MG/ML VIAL ONE (01:58)
== END 2019-01-08 03:11 | disposition home or self-care (01) ==
LOC: ERS 01:01
DX: R51 Headache (principal)
CPT/HCPCS: 96365; 96375; J1200; J1885; J2765

== ENCOUNTER 2022-11-24 14:08 | Outpatient (CLI) | payer BC | END 2022-11-24 14:09 | disposition home or self-care (01) | LOC: RAD 14:08 | PROVIDERS: ATTEND Internal Medicine Rheumatology | DX: G57.52 Tarsal tunnel syndrome, left lower limb (principal); Q66.6 Other congenital valgus deformities of feet ==

== ENCOUNTER 2024-08-02 10:06 | Outpatient (CLI) | payer BC | END 2024-08-02 10:07 | disposition home or self-care (01) | LOC: BICMAMMO 10:06 | PROVIDERS: ATTEND Family Medicine | DX: Z12.31 Encounter for screening mammogram for malignant neoplasm of breast (principal); M85.89 Other specified disorders of bone density and structure, multiple sites | CPT/HCPCS: 77063; 77067; 77080 ==